=== PATIENT | male | born 1955 | race American Indian/Alaskan Native ===

== ENCOUNTER 2017-02-09 06:32 | Emergency (ER) | payer OTHER ==
[2017-02-09 06:41] VITALS: BP 153/94
[2017-02-09] MEDS ORDERED: TYLENOL PO ONE (09:32)
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
== END 2017-02-09 19:00 | disposition left against medical advice (07) ==
LOC: ED 06:32
DX: M54.5 Low back pain (principal); M54.2 Cervicalgia; M54.6 Pain in thoracic spine; V49.59XA Passenger injured in collision with other motor vehicles in traffic accident, initial encounter; X58.XXXA Exposure to other specified factors, initial encounter; Y93.9 Activity, unspecified; Y92.9 Unspecified place or not applicable; Y99.9 Unspecified external cause status; I10 Essential (primary) hypertension; F17.200 Nicotine dependence, unspecified, uncomplicated
CPT/HCPCS: 72072; 72100

== ENCOUNTER 2017-05-20 18:48 | Inpatient (IN) | payer MEDICARE, OTHER ==
[2017-05-21] MEDS ORDERED: ASPIRIN PO ONE (00:30)
[2017-05-21 00:56] LABS: Basophils % (Auto) 0.3 % (0.0-1.8); Eosinophils # (Auto) 0.1 K/mm3 (0.0-0.4); Eosinophils % (Auto) 0.7 % (0.0-4.3); Hematocrit 44.8 % (35.5-45.6); Hemoglobin 14.8 gm/dl (11.8-15.2); Lymphocytes # (Auto) 2.7 K/mm3 (1.2-5.4); Lymphocytes % (Auto) 24.3 % (13.4-35.0); Mean Corpuscular HGB Conc 33 % (32-34); Mean Corpuscular Hemoglobin 29 pg (28-32); Mean Corpuscular Volume 89 fl (84-94); Monocytes # (Auto) 1.1 K/mm3 (0.0-0.8); Monocytes % (Auto) 9.4 % (0.0-7.3); Platelet Count 271 K/mm3 (140-440); Red Blood Count 5.04 M/mm3 (3.65-5.03); Red Cell Distribution Width 14.5 % (13.2-15.2)
[2017-05-21 01:13] LABS: BUN/Creatinine Ratio 13; Blood Urea Nitrogen 9 mg/dL (9-20); Calcium 9.6 mg/dL (8.4-10.2); Hemolysis Index 19
[2017-05-21 02:32] LABS: Chol/HDL Ratio 1.96 %; HDL Cholesterol 65 mg/dL (40-59); LDL Cholesterol,Direct 48 mg/dL (50-130)
--- NOTE | 2017-05-21 06:32 | Emergency Department Report ---
ED Chest Pain HPI - General Chief Complaint: Chest Pain Stated Complaint: CHEST PAIN/MH Time Seen by Provider: 05/21/17 06:30 Source: patient Mode of arrival: Stretcher Limitations: No Limitations - History of Present Illness Initial Comments: Patient reports having a stent placed at the [facility] approximately one week ago. He is complaining of left-sided chest pain with some left arm radiation. He states that it feels similar to his prior chest pain before his stent but much less in intensity. It is mildly persistent. He states he's had some shortness of breath recently but not currently. He's had no recent sweating or diaphoresis no vomiting and no recent travel. Patient also complains of depression with suicidal thoughts. He states he was admitted 2-3 weeks ago for the same. MD Complaint: chest pain -: Gradual, days(s) Onset: during rest Pain Location: left chest Pain Radiation: LUE Severity: mild, moderate Quality: pressure Consistency: intermittent, other (mildly persistent) Improves With: nothing Worsens With: nothing Context: other (recent PCI) re: denies: diaphoresis, sense of impending doom Other Symptoms: denies: cough, fever, syncope Treatments Prior to Arrival: other (states on Plavix) - Related Data Home Medications Medication Instructions Recorded Confirmed Last Taken Amlodipine Besylate 02/09/17 Unknown traZODone [Desyrel] 100 mg PO 02/09/17 Unknown Previous Rx's Medication Instructions Recorded Last Taken Type Acetaminophen [Tylenol Extra 500 mg PO Q8HR PRN #15 tablet 02/09/17 Unknown Rx Strength] methOCARBAMOL [Robaxin TAB] 500 mg PO Q6H PRN #15 tablet 02/09/17 Unknown Rx Allergies Allergy/AdvReac Type Severity Reaction Status Date / Time No Known Allergies Allergy Verified 05/21/17 06:32 Heart Score - HEART Score History: Moderately suspicious EKG: Non-specific Age: 45-65 Risk factors: > 3 risk factors or hx of atherosclerotic disease Troponin: 1-3x normal limit HEART Score: 6 - Critical Actions Critical Actions: 4-6 pts:12-16.6% risk of adverse cardiac event. Should be admitted ED Review of Systems ROS: Stated complaint: CHEST PAIN/MH Other details as noted in HPI Constitutional: denies: chills, fever Eyes: denies: eye pain, eye discharge, vision change ENT: denies: ear pain, throat pain Respiratory: shortness of breath. denies: cough, wheezing Cardiovascular: chest pain. denies: palpitations Endocrine: no symptoms reported Gastrointestinal: denies: abdominal pain, nausea, diarrhea Genitourinary: denies: urgency, dysuria Musculoskeletal: denies: back pain, joint swelling, arthralgia Skin: denies: rash, lesions Neurological: denies: headache, weakness, paresthesias Psychiatric: depression, suicidal thoughts. denies: anxiety Hematological/Lymphatic: denies: easy bleeding, easy bruising ED Past Medical Hx - Past Medical History Hx Hypertension: Yes Hx Heart Attack/AMI: Yes (CAD) - Surgical History Hx Coronary Stent: Yes (X 3) - Social History Smoking Status: Current Every Day Smoker Substance Use Type: None - Medications Home Medications: Home Medications Medication Instructions Recorded Confirmed Last Taken Type Acetaminophen [Tylenol Extra 500 mg PO Q8HR PRN #15 tablet 02/09/17 Unknown Rx Strength] Amlodipine Besylate 02/09/17 Unknown History methOCARBAMOL [Robaxin TAB] 500 mg PO Q6H PRN #15 tablet 02/09/17 Unknown Rx traZODone [Desyrel] 100 mg PO 02/09/17 Unknown History ED Physical Exam - General Limitations: No Limitations General appearance: alert, in no apparent distress - Head Head exam: Present: atraumatic, normocephalic - Eye Eye exam: Present: normal appearance. Absent: scleral icterus - ENT ENT exam: Present: mucous membranes moist - Neck Neck exam: Present: normal inspection - Respiratory Respiratory exam: Present: normal lung sounds bilaterally. Absent: respiratory distress - Cardiovascular Cardiovascular Exam: Present: regular rate, normal rhythm. Absent: systolic murmur, diastolic murmur, rubs, gallop - GI/Abdominal GI/Abdominal exam: Present: soft, normal bowel sounds. Absent: distended, tenderness, guarding, rebound - Rectal Rectal exam: Present: deferred - Extremities Exam Extremities exam: Present: normal inspection, normal capillary refill. Absent: tenderness, pedal edema, joint swelling, calf tenderness - Back Exam Back exam: Present: normal inspection - Neurological Exam Neurological exam: Present: alert, oriented X3, CN II-XII intact. Absent: motor sensory deficit - Psychiatric Psychiatric exam: Present: normal mood, flat affect - Skin Skin exam: Present: warm, dry, intact, normal color. Absent: rash ED Course Vital Signs 05/21/17 05/21/17 00:23 04:57 Temperature 98.8 F 98.1 F Pulse Rate 97 H 86 Respiratory 16 18 Rate Blood Pressure 154/104 136/95 O2 Sat by Pulse 98 96 Oximetry - Reevaluation(s) Reevaluation #1: A 1013 form was executed. I spoke with Dr. Wilkerson. The patient will be admitted to the hospitalist service. 05/21/17 08:08 DUYEN score - Duyen Score Age > 65: (0) No Aspirin use within the Past 7 Days: (0) No 3 or more CAD Risk Factors: (1) Yes 2 or more Angina events in past 24 hrs: (1) Yes Known CAD with more than 50% Stenosis: (1) Yes Elevated Cardiac Markers: (1) Yes ST Deviation Greater than 0.5mm: (0) No DUYEN Score: 4 ED Medical Decision Making - Lab Data Result diagrams: 05/21/17 00:37 05/21/17 00:37 Laboratory Results - last 24 hr 05/21/17 05/21/17 05/21/17 00:37 00:37 05:28 WBC 11.2 H RBC 5.04 H Hgb 14.8 Hct 44.8 MCV 89 MCH 29 MCHC 33 RDW 14.5 Plt Count 271 Lymph % (Auto) 24.3 [place] % (Auto) 9.4 H Eos % (Auto) 0.7 Baso % (Auto) 0.3 Lymph # 2.7 [place] # 1.1 H Eos # 0.1 Baso # 0.0 Seg Neutrophils % 65.3 Seg Neutrophils # 7.3 Sodium 139 Potassium 3.8 Chloride 99.6 Carbon Dioxide 21 L Anion Gap 22 BUN 9 Creatinine 0.7 L Estimated GFR > 60 BUN/Creatinine Ratio 13 Glucose 98 Calcium 9.6 Troponin T 0.041 H 0.039 H Triglycerides 79 Cholesterol 128 LDL Cholesterol Direct 48 L HDL Cholesterol 65 H Cholesterol/HDL Ratio 1.96 - EKG Data -: EKG Interpreted by Me EKG shows normal: sinus rhythm, axis, intervals, QRS complexes, ST-T waves Rate: normal - EKG Data Interpretation: other (occasional ectopy no evidence of acute ischemia biatrial enlargement) - Radiology Data Radiology results: report reviewed interpreted by me: No acute finding on chest x-ray Critical care attestation.: If time is entered above; I have spent that time in minutes in the direct care of this critically ill patient, excluding procedure time. ED Disposition Clinical Impression: Suicidal ideation Chest pain Qualifiers: Chest pain type: unspecified Qualified Code(s): R07.9 - Chest pain, unspecified Coronary artery disease Qualifiers: Coronary Disease-Associated Artery/Lesion type: unspecified vessel or lesion type [place] vs. transplanted heart: [place] heart Associated angina: with unstable angina Qualified Code(s): I25.110 - Atherosclerotic heart disease of [place] coronary artery with unstable angina pectoris Depression Qualifiers: Depression Type: unspecified Qualified Code(s): F32.9 - Major depressive disorder, single episode, unspecified Disposition: DC-09 OP ADMIT IP TO THIS HOSP Is pt being admited?: Yes Does the pt Need Aspirin: Yes Condition: Stable Instructions: Chest Pain (ED) Referrals: PRIMARY CARE, [Primary Care Provider] - 3-5 Days Time of Disposition: 08:12
[2017-05-21 07:12] LABS: INR 1.01 (0.87-1.13)
[2017-05-21 07:13] LABS: Partial Thromboplastin Time 30.6 Sec. (24.2-36.6)
[2017-05-21 07:18] LABS: Albumin 3.8 g/dL (3.9-5); Bilirubin,Direct 0.2 mg/dL (0-0.2)
--- NOTE | 2017-05-21 08:06 | XRay Report ---
FINAL REPORT EXAM: XR CHEST 1V AP HISTORY: hypertension TECHNIQUE: AP portable view(s) of the chest obtained. PRIORS: None. FINDINGS: No mediastinal shift. Cardiac silhouette is not enlarged. No pneumothorax, effusion, or focal pulmonary opacity identified. No acute skeletal findings. IMPRESSION: No acute pulmonary finding identified.
[2017-05-21] MEDS ORDERED: NITRO-BID 2% TP ONE (08:12)
--- NOTE | 2017-05-21 08:54 | History and Physical Report ---
History of Present Illness Date of examination: 05/21/17 Date of admission: 05/21/17 Chief complaint: Left sided chest pain History of present illness: Patient is 61 yo. He is a poor historian. He has history of CAD, s/p [address] [facility]. He presents with chest pain. He states he had chest pain, went to CT, coronary stent was placed and he was discharged home. Few days later started having chest pain again. Left sided, 8/10, sharp pain radiates down to left arm, worse on exertion. Pain has no relationship to meals. He denies nausea, vomiting or shortness of breath. In Emergency Department, Troponins are borderline elevated. He also mentions being depressed and suicidal. Will admit to Telemetry to rule out acute coronary syndrome Past History Past Medical History: CAD (s/p stent 1-2 weeks ago), hypertension, hyperlipidemia, other (Anxiety and depression) Past Surgical History: Other (PCI,stent placement) Social history: single, smoking (1 pack daily), alcohol abuse (Ocassionally), full code, other (Cocaine abuse) Family history: hypertension Medications and Allergies Allergies Allergy/AdvReac Type Severity Reaction Status Date / Time No Known Allergies Allergy Verified 05/21/17 06:32 Home Medications Medication Instructions Recorded Confirmed Last Taken Type No Known Home Medications [No 05/22/17 05/22/17 Unknown History Reported Home Medications] Review of Systems All systems: negative (No fever, no cough, no headache. All other systems reviewed and are negative) Exam - Physical Exam Narrative exam: GEN APPEARANCE : Not in acute distress, obese HEENT: Normocephalic, Atraumatic NECK : supple, no JVD LUNGS: Clear to auscultation bilaterally, no crackles, no wheeze, HEART: S1 and S2 regular, no murmurs, rubs or gallop, ABD: Soft, non tender, non distended, normal bowel sounds EXT:No edema, no clubbing, no cyanosis NEURO: Awake, alert,oriented x 3, no focal signs Psych: Depressed - Constitutional Vitals: Temp Pulse Resp BP Pulse Ox 98.1 F 86 18 136/95 96 05/21/17 04:57 05/21/17 04:57 05/21/17 04:57 05/21/17 04:57 05/21/17 04:57 Results - Labs CBC & Chem 7: 05/22/17 06:23 05/22/17 06:23 Labs: Abnormal lab results 05/21/17 05/21/17 05/21/17 Range/Units 00:37 00:37 05:28 WBC 11.2 H (4.5-11.0) K/mm3 RBC 5.04 H (3.65-5.03) M/mm3 [place] % (Auto) 9.4 H (0.0-7.3) % [place] # 1.1 H (0.0-0.8) K/mm3 Carbon Dioxide 21 L (22-30) mmol/L Creatinine 0.7 L (0.8-1.5) mg/dL Troponin T 0.041 H 0.039 H (0.00-0.029) ng/mL Albumin (3.9-5) g/dL LDL Cholesterol Direct 48 L (50-130) mg/dL HDL Cholesterol 65 H (40-59) mg/dL 05/21/17 05/21/17 Range/Units 06:36 06:36 WBC (4.5-11.0) K/mm3 RBC (3.65-5.03) M/mm3 [place] % (Auto) (0.0-7.3) % [place] # (0.0-0.8) K/mm3 Carbon Dioxide (22-30) mmol/L Creatinine (0.8-1.5) mg/dL Troponin T 0.042 H (0.00-0.029) ng/mL Albumin 3.8 L (3.9-5) g/dL LDL Cholesterol Direct (50-130) mg/dL HDL Cholesterol (40-59) mg/dL Assessment and Plan Chest pain. may be stable angina or non-cardiac. Give Aspirin, Beta Blockers. Bed rest,Consult cardiology. Troponins borderline elevated CAD s/p recent stent 1-[address] Will obtain records from [place] Hypertension. BP stable. Suicidal. Psych eval , 1:1 sitter, suicidal watch. Cocaine abuse. I counseled him on importance of quitting cocaine. DVT prophylaxis. Will use SCDs only for now. may start Heparin if no procedure planned by Cardiology. Home medication list not available.
[2017-05-21] MEDS ORDERED: DULCOLAX PR PRN (08:56)
[2017-05-21] MEDS ORDERED: TYLENOL PO PRN (08:56)
[2017-05-21] MEDS ORDERED: ZOFRAN IV PRN (08:56)
[2017-05-21] MEDS ORDERED: MILK OF MAGNESIA PO PRN (08:56)
[2017-05-21] MEDS ORDERED: SODIUM CHLORIDE FLUSH SYRINGE 10 ML IV PRN (08:58)
[2017-05-21] MEDS ORDERED: NITROSTAT SL PRN (08:58)
--- NOTE | 2017-05-21 13:20 | Consultation ---
History of Present Illness Consult date: 05/21/17 Consult reason: chest pain History of present illness: 61 YO man with h/o htn, depression and CAD who presented to ED due to pain in the left side of his chest with associated dyspnea. He has not had any nausea or diaphoresis in association with chest pain. His troponin level is borderline elevated at 0.04. Of note, he reports he had recent PCI at [facility] with placement of 2 stents about 2 weeks ago. He also reports he has history of depression and had been thinking about killing himself. He is currently being monitored with 1:1 sitter due to suicidal thoughts. He reports he has been compliant with all medications including aspirin and plavix. He also reports chronic history of crack cocaine use and last used crack cocaine yesterday. ECG reveals NSR with right atrial enlargement, single PVC, prolonged QTc. Past History Past Medical History: CAD (s/p stent 1-2 weeks ago), hypertension, hyperlipidemia, other (Anxiety and depression) Past Surgical History: Other (PCI,stent placement) Social history: single, smoking (1 pack daily), alcohol abuse (Ocassionally), full code, other (crack cocaine abuse) Family history: hypertension Medications and Allergies Allergies Allergy/AdvReac Type Severity Reaction Status Date / Time No Known Allergies Allergy Verified 05/21/17 06:32 Home Medications Medication Instructions Recorded Confirmed Last Taken Type Acetaminophen [Tylenol Extra 500 mg PO Q8HR PRN #15 tablet 02/09/17 Unknown Rx Strength] Amlodipine Besylate 02/09/17 Unknown History methOCARBAMOL [Robaxin TAB] 500 mg PO Q6H PRN #15 tablet 02/09/17 Unknown Rx traZODone [Desyrel] 100 mg PO 02/09/17 Unknown History Active Meds: Active Medications Acetaminophen (Tylenol) 650 mg PO Q4H PRN PRN Reason: Pain MILD(1-3)/Fever >100.5/STUART Aspirin (Ecotrin) 325 mg PO QDAY DANY Bisacodyl (Dulcolax) 10 mg NM QDAY PRN PRN Reason: Constipation unrelieved by MOM Magnesium Hydroxide (Milk Of Magnesia) 30 ml PO Q4H PRN PRN Reason: Constipation Morphine Sulfate (Morphine) 2 mg IV Q5MIN PRN PRN Reason: Chest Pain Nitroglycerin (Nitrostat) 0.4 mg SL Q5M PRN PRN Reason: Chest Pain Ondansetron HCl (Zofran) 4 mg IV Q6H PRN PRN Reason: nausea or vomioting Sodium Chloride (Sodium Chloride Flush Syringe 10 Ml) 10 ml IV PRN PRN PRN Reason: LINE FLUSH Review of Systems All systems: negative (per hpi) Physical Examination Vital Signs Temp Pulse Resp BP Pulse Ox 98.8 F 97 H 16 154/104 98 05/21/17 00:23 05/21/17 00:23 05/21/17 00:23 05/21/17 00:23 05/21/17 00:23 General appearance: no acute distress Cardiac: Positive: Reg Rate and Rhythm Lungs: Positive: clear to auscultation, Normal Breath Sounds Abdomen: Positive: Soft, Active Bowel Sounds Extremities: Absent: edema Results 05/21/17 00:37 05/21/17 00:37 Cardiac Enzymes 05/21/17 Range/Units 06:36 AST 19 (5-40) units/L Coagulation 05/21/17 Range/Units 06:45 PT 13.8 (12.2-14.9) Sec. INR 1.01 (0.87-1.13) APTT 30.6 (24.2-36.6) Sec. Lipids 05/21/17 Range/Units 00:37 Triglycerides 79 (2-149) mg/dL Cholesterol 128 (50-199) mg/dL HDL Cholesterol 65 H (40-59) mg/dL Cholesterol/HDL Ratio 1.96 % CBC 05/21/17 Range/Units 00:37 WBC 11.2 H (4.5-11.0) K/mm3 RBC 5.04 H (3.65-5.03) M/mm3 Hgb 14.8 (11.8-15.2) gm/dl Hct 44.8 (35.5-45.6) % Plt Count 271 (140-440) K/mm3 Lymph # 2.7 (1.2-5.4) K/mm3 [place] # 1.1 H (0.0-0.8) K/mm3 Eos # 0.1 (0.0-0.4) K/mm3 Baso # 0.0 (0.0-0.1) K/mm3 Comprehensive Metabolic Panel 02/04/18 02/04/18 Range/Units 00:37 06:36 Sodium 139 (137-145) mmol/L Potassium 3.8 (3.6-5.0) mmol/L Chloride 99.6 (98-107) mmol/L Carbon Dioxide 21 L (22-30) mmol/L BUN 9 (9-20) mg/dL Creatinine 0.7 L (0.8-1.5) mg/dL Glucose 98 (75-100) mg/dL Calcium 9.6 (8.4-10.2) mg/dL Direct Bilirubin 0.2 (0-0.2) mg/dL Indirect Bilirubin 0.9 mg/dL AST 19 (5-40) units/L ALT 17 (7-56) units/L Alkaline Phosphatase 101 (35-129) units/L Total Protein 7.1 (6.3-8.2) g/dL Albumin 3.8 L (3.9-5) g/dL Assessment and Plan Atypical chest pain Minimal troponin elevation not in a pattern suggestive of ACS and no significant ischemic changes on ECG CAD s/p recent PCI at [facility] per patient Crack cocaine abuse Htn HL Recommend: Continue chronic cardiac medications inclulding statin and dual antiplatelet therapy with aspirin and plavix Will avoid beta anthony for now due to active cocaine use Obtain records from [facility].
[2017-05-21] MEDS: PLAVIX PO SCH (13:41)
[2017-05-22 07:27] LABS: BUN/Creatinine Ratio 18; Blood Urea Nitrogen 14 mg/dL (9-20); Calcium 9.1 mg/dL (8.4-10.2); Hemolysis Index 13
[2017-05-22 09:02] LABS: Basophils % (Auto) 0.4 % (0.0-1.8); Eosinophils # (Auto) 0.1 K/mm3 (0.0-0.4); Eosinophils % (Auto) 1.4 % (0.0-4.3); Hematocrit 43.3 % (35.5-45.6); Hemoglobin 14.3 gm/dl (11.8-15.2); Lymphocytes % (Auto) 28.4 % (13.4-35.0); Mean Corpuscular HGB Conc 33 % (32-34); Mean Corpuscular Hemoglobin 29 pg (28-32); Mean Corpuscular Volume 88 fl (84-94); Monocytes % (Auto) 14.4 % (0.0-7.3); Platelet Count 245 K/mm3 (140-440); Red Blood Count 4.94 M/mm3 (3.65-5.03); Red Cell Distribution Width 14.4 % (13.2-15.2)
[2017-05-22] MEDS: PLAVIX PO SCH (10:07)
[2017-05-22] MEDS: ECOTRIN PO SCH (10:07)
[2017-05-22] MEDS: MORPHINE IV PRN ×3 (10:10→21:01)
--- NOTE | 2017-05-22 11:06 | Progress Note ---
Assessment and Plan Atypical chest pain no significant ischemic changes on ECG CAD s/p recent PCI at [facility] per patient reports compliance with aspirin and plavix therapy Cocaine abuse Htn HL Recommend: Medical therapy for coronary artery disease including statin and dual antiplatelet therapy with aspirin and plavix Avoid beta anthony for now due to active cocaine use. Obtain records from [facility]. Subjective Date of service: 05/22/17 Interval history: Patient denies chest pain. Objective Vital Signs Temp Pulse Resp BP BP Pulse Ox 05/22/17 08:27 84 130/107 100 05/22/17 08:26 97.7 F 63 18 130/107 100 05/22/17 04:46 98.1 F 68 19 121/84 95 05/22/17 03:00 69 05/21/17 23:58 99.2 F 86 20 121/86 95 05/21/17 20:01 98.7 F 88 20 126/87 99 05/21/17 19:40 80 05/21/17 12:40 77 16 101/71 99 - Physical Examination General: No Apparent Distress HEENT: Positive: PERRL Cardiac: Positive: Reg Rate and Rhythm Abdomen: Positive: Soft, Active Bowel Sounds Extremities: Absent: edema - Labs and Meds CBC 05/22/17 Range/Units 06:23 WBC 7.0 (4.5-11.0) K/mm3 RBC 4.94 (3.65-5.03) M/mm3 Hgb 14.3 (11.8-15.2) gm/dl Hct 43.3 (35.5-45.6) % Plt Count 245 (140-440) K/mm3 Lymph # 2.0 (1.2-5.4) K/mm3 [place] # 1.0 H (0.0-0.8) K/mm3 Eos # 0.1 (0.0-0.4) K/mm3 Baso # 0.0 (0.0-0.1) K/mm3 Comprehensive Metabolic Panel 05/22/17 Range/Units 06:23 Sodium 144 (137-145) mmol/L Potassium 3.8 (3.6-5.0) mmol/L Chloride 106.1 (98-107) mmol/L Carbon Dioxide 23 (22-30) mmol/L BUN 14 (9-20) mg/dL Creatinine 0.8 (0.8-1.5) mg/dL Glucose 118 H (75-100) mg/dL Calcium 9.1 (8.4-10.2) mg/dL
--- NOTE | 2017-05-22 13:01 | Progress Note ---
Assessment and Plan Assessment and plan: Chest pain. May be stable angina or non-cardiac. Continue Aspirin, Beta Blockers , bed rest. Discussed with cardiology. Troponins borderline elevated CAD s/p recent stent 2 weeks ago at [place]. Will obtain records from [place] Hypertension. BP stable. Suicidal. Psych eval , 1:1 sitter, suicidal watch. Psych consulted. Cocaine abuse. I counseled him on importance of quitting cocaine. DVT prophylaxis. Start Heparin subcut. Home medication list still not available. History Interval history: No more chest pain, depressed suicidal Hospitalist Physical - Physical exam Narrative exam: GEN APPEARANCE : Not in acute distress, obese HEENT: Normocephalic, Atraumatic NECK : supple, no JVD LUNGS: Clear to auscultation bilaterally, no crackles, no wheeze, HEART: S1 and S2 regular, no murmurs, rubs or gallop, ABD: Soft, non tender, non distended, normal bowel sounds EXT:No edema, no clubbing, no cyanosis NEURO: Awake, alert,oriented x 3, no focal signs Psych: Depressed - Constitutional Vitals: Temp Pulse Resp BP Pulse Ox 97.7 F 84 18 130/107 100 05/22/17 08:26 05/22/17 11:00 05/22/17 08:26 05/22/17 08:27 05/22/17 08:27 General appearance: Present: no acute distress Results - Labs CBC & Chem 7: 05/22/17 06:23 05/22/17 06:23 Labs: Laboratory Last Values WBC 7.0 K/mm3 (4.5-11.0) 05/22/17 06:23 RBC 4.94 M/mm3 (3.65-5.03) 05/22/17 06:23 Hgb 14.3 gm/dl (11.8-15.2) 05/22/17 06:23 Hct 43.3 % (35.5-45.6) 05/22/17 06:23 MCV 88 fl (84-94) 05/22/17 06:23 MCH 29 pg (28-32) 05/22/17 06:23 MCHC 33 % (32-34) 05/22/17 06:23 RDW 14.4 % (13.2-15.2) 05/22/17 06:23 Plt Count 245 K/mm3 (140-440) 05/22/17 06:23 Lymph % (Auto) 28.4 % (13.4-35.0) 05/22/17 06:23 [place] % (Auto) 14.4 % (0.0-7.3) H 05/22/17 06:23 Eos % (Auto) 1.4 % (0.0-4.3) 05/22/17 06:23 Baso % (Auto) 0.4 % (0.0-1.8) 05/22/17 06:23 Lymph # 2.0 K/mm3 (1.2-5.4) 05/22/17 06:23 [place] # 1.0 K/mm3 (0.0-0.8) H 05/22/17 06:23 Eos # 0.1 K/mm3 (0.0-0.4) 05/22/17 06:23 Baso # 0.0 K/mm3 (0.0-0.1) 05/22/17 06:23 Seg Neutrophils % 55.4 % (40.0-70.0) 05/22/17 06:23 Seg Neutrophils # 3.9 K/mm3 (1.8-7.7) 05/22/17 06:23 PT 13.8 Sec. (12.2-14.9) 05/21/17 06:45 INR 1.01 (0.87-1.13) 05/21/17 06:45 APTT 30.6 Sec. (24.2-36.6) 05/21/17 06:45 Sodium 144 mmol/L (137-145) 05/22/17 06:23 Potassium 3.8 mmol/L (3.6-5.0) 05/22/17 06:23 Chloride 106.1 mmol/L (98-107) 05/22/17 06:23 Carbon Dioxide 23 mmol/L (22-30) 05/22/17 06:23 Anion Gap 19 mmol/L 05/22/17 06:23 BUN 14 mg/dL (9-20) 05/22/17 06:23 Creatinine 0.8 mg/dL (0.8-1.5) 05/22/17 06:23 Estimated GFR > 60 ml/min 05/22/17 06:23 BUN/Creatinine Ratio 18 % 05/22/17 06:23 Glucose 118 mg/dL (75-100) H 05/22/17 06:23 Calcium 9.1 mg/dL (8.4-10.2) 05/22/17 06:23 Total Bilirubin 1.10 mg/dL (0.1-1.2) 05/21/17 06:36 Direct Bilirubin 0.2 mg/dL (0-0.2) 05/21/17 06:36 Indirect Bilirubin 0.9 mg/dL 05/21/17 06:36 AST 19 units/L (5-40) 05/21/17 06:36 ALT 17 units/L (7-56) 05/21/17 06:36 Alkaline Phosphatase 101 units/L (35-129) 05/21/17 06:36 Troponin T 0.042 ng/mL (0.00-0.029) H 05/21/17 06:36 NT-Pro-B Natriuret Pep 688.9 pg/mL (0-900) 05/21/17 06:36 Total Protein 7.1 g/dL (6.3-8.2) 05/21/17 06:36 Albumin 3.8 g/dL (3.9-5) L 05/21/17 06:36 Albumin/Globulin Ratio 1.2 % 05/21/17 06:36 Triglycerides 79 mg/dL (2-149) 05/21/17 00:37 Cholesterol 128 mg/dL (50-199) 05/21/17 00:37 LDL Cholesterol Direct 48 mg/dL (50-130) L 05/21/17 00:37 HDL Cholesterol 65 mg/dL (40-59) H 05/21/17 00:37 Cholesterol/HDL Ratio 1.96 % 05/21/17 00:37
[2017-05-22] MEDS: HEPARIN SUB-Q SCH (21:01)
[2017-05-23] MEDS: HEPARIN SUB-Q SCH ×3 (06:31→21:42)
[2017-05-23] MEDS: ECOTRIN PO SCH (10:55)
[2017-05-23] MEDS: PLAVIX PO SCH (10:55)
--- NOTE | 2017-05-23 10:56 | Consultation ---
History of Present Illness - Reason for Consult Consult date: 05/23/17 Reason for consult: Mental Health Evaluation Requesting physician: ANTONI SALAZAR - Chief Complaint Chief complaint: "I have no reason to live" - History of Present Psychiatric Illness Patient reports having a stent placed at [facility] approximately one week ago. Psychiatry was consulted to see patient for depression and SI's. Today the patient is calm and cooperative during the assessment. He stated that his current medical condition (cardiac issues) has exacerbated his depression. He stated he was dx with depression several years ago. He stated that he is suicidal without a plan. He stated a previous suicide attempt in the past. He stated that he cannot initiate his sleep because he worries about his medical issues. He stated having a "so so" appetite. He stated when he think about his life, he feel hopeless, helpless, and lack self-esteem. He stated that he is "useless." He rate his depression 7/10, with 10 being the worse. He denies HI's and AVH's. He denies any manic episodes in the past. He admitted to crack cocaine use last weekend, but denies alcohol consumption (etoh). Medications and Allergies Allergies Allergy/AdvReac Type Severity Reaction Status Date / Time No Known Allergies Allergy Verified 05/21/17 06:32 Home Medications Medication Instructions Recorded Confirmed Last Taken Type Aspirin [Aspirin BABY CHEW TAB] 81 mg PO QDAY 05/22/17 05/23/17 1 Day Ago History ~05/22/17 Atorvastatin Calcium 80 mg PO DAILY 05/22/17 05/23/17 1 Day Ago History ~05/22/17 Carvedilol [Coreg] 6.25 mg PO BID 05/22/17 05/23/17 1 Day Ago History ~05/22/17 Clopidogrel Bisulfate [Plavix] 75 mg PO DAILY 05/22/17 05/23/17 1 Day Ago History ~05/22/17 Cyanocobalamin (Vitamin B-12) 1,000 mcg IM UNK 05/22/17 05/23/17 1 Day Ago History [Physicians Ez Use B-12] ~05/22/17 Escitalopram [Lexapro] 10 mg PO DAILY 05/22/17 05/23/17 1 Day Ago History ~05/22/17 Folic Acid [Folvite] 1 mg PO QDAY 05/22/17 05/23/17 1 Day Ago History ~05/22/17 Furosemide [Lasix] 40 mg PO QDAY 05/22/17 05/23/17 1 Day Ago History ~05/22/17 Gabapentin [Neurontin] 400 mg PO Q8HR 05/22/17 05/23/17 1 Day Ago History ~05/22/17 ISOSORBIDE MONOnitrate [Imdur ER] 30 mg PO DAILY 05/22/17 05/23/17 1 Day Ago History ~05/22/17 Lisinopril [Zestril TAB] 10 mg PO QDAY 05/22/17 05/23/17 1 Day Ago History ~05/22/17 Melatonin/Pyridoxine [Melatonin 5 5 mg PO HS MDD upto 2 tablets 05/22/17 1 Day Ago History mg Tablet] ~05/22/17 Thiamine [Vitamin B-1] 100 mg PO QDAY 05/22/17 05/23/17 1 Day Ago History ~05/22/17 amLODIPine [Norvasc] 10 mg PO DAILY 05/22/17 05/23/17 1 Day Ago History ~05/22/17 buPROPion XL [Wellbutrin Xl] 150 mg PO QAM 05/22/17 05/23/17 1 Day Ago History ~05/22/17 Active Meds: Active Medications Acetaminophen (Tylenol) 650 mg PO Q4H PRN PRN Reason: Pain MILD(1-3)/Fever >100.5/STUART Aspirin (Ecotrin) 325 mg PO QDAY [facility] Last Admin: 05/23/17 10:55 Dose: 325 mg Bisacodyl (Dulcolax) 10 mg [place] QDAY PRN PRN Reason: Constipation unrelieved by MOM Clopidogrel Bisulfate (Plavix) 75 mg PO QDAY [facility] Last Admin: 05/23/17 10:55 Dose: 75 mg Heparin Sodium (Porcine) (Heparin) 5,000 unit SUB-Q Q8HR [facility] Last Admin: 05/23/17 06:31 Dose: 5,000 unit Magnesium Hydroxide (Milk Of Magnesia) 30 ml PO Q4H PRN PRN Reason: Constipation Last Admin: 05/22/17 21:01 Dose: 30 ml Morphine Sulfate (Morphine) 2 mg IV Q5MIN PRN PRN Reason: Chest Pain Last Admin: 05/22/17 21:01 Dose: 2 mg Nitroglycerin (Nitrostat) 0.4 mg SL Q5M PRN PRN Reason: Chest Pain Ondansetron HCl (Zofran) 4 mg IV Q6H PRN PRN Reason: nausea or vomioting Sodium Chloride (Sodium Chloride Flush Syringe 10 Ml) 10 ml IV PRN PRN PRN Reason: LINE FLUSH Past psychiatric history - Past Medical History Past Medical History: hypertension, other ([place]) Past Surgical History: Other (stents) - past Psychiatric treatment and history Psych: Depression psychiatric treatment history: Impatient psy services in the past. Denies a fam psy hx. - Social History Social history: other (Homeless) Mental Status Exam - Vital signs Last Vital Signs Temp 98.6 F 05/23/17 04:33 Pulse 68 05/23/17 04:33 Resp 18 05/23/17 04:33 BP 125/94 05/23/17 04:33 Pulse Ox 100 05/23/17 09:17 - Exam Narrative exam: MSE: Appearance: calm, cooperative Behavior: regular eye contact Speech: regular rate and tone Mood: "depressed" Affect: congruent to mood Thought Process: circumstantial Thought Content: denies HI's and AVH's Motor Activity: ambulatory Cognition: A/O x3 Insight: variable Judgment: variable Results Result Diagrams: 05/22/17 06:23 05/22/17 06:23 All other labs normal. Assessment and Plan Assessment and plan: Impression: MDD Severe Type. Today the patient is calm and cooperative during the assessment. The patient endorses SI's. DDx: R/O Bipolar DO Recommendation/Plan: Continue 1013 with placement to inpatient psy services. Start Remeron 15 mg PO HS for depression/sleep consolidation. Discussed possible suicidality/medication induced sanjay with patient.
--- NOTE | 2017-05-23 12:49 | Progress Note ---
Assessment and Plan Assessment and plan: Chest pain. Patient with no ST abnormalities on his ECG and no clinical or laboratory indicators of subacute stent thrombosis. Continue Aspirin, Beta Blockers. Cardiology recommends continue medical therapy for his underlying coronary artery disease CAD s/p recent stent 2 weeks ago at [place]. Discontinue tobacco use Hypertension. BP stable. Suicidal. Psych eval , 1:1 sitter, suicidal watch. Psych following. Recommendations for inpatient psychiatric services. Cocaine abuse. Has been counseled on the importance of quitting. DVT prophylaxis. Start Heparin subcut. History Interval history: No new issues overnight. Hospitalist Physical - Constitutional Vitals: Temp Pulse Resp BP Pulse Ox 98.6 F 57 L 18 125/94 100 05/23/17 04:33 05/23/17 11:00 05/23/17 04:33 05/23/17 04:33 05/23/17 09:17 General appearance: Present: no acute distress - EENT Eyes: Present: PERRL, EOM intact ENT: hearing intact, clear oral mucosa, dentition normal - Neck Neck: Present: supple, normal ROM - Respiratory Respiratory effort: normal Respiratory: bilateral: CTA - Cardiovascular Rhythm: regular Heart Sounds: Present: S1 & S2. Absent: gallop, rub - Extremities Extremities: no ischemia, No edema, Full ROM - Abdominal General gastrointestinal: soft, non-tender, non-distended, normal bowel sounds - Integumentary Integumentary: Present: clear, warm, dry - Neurologic Neurologic: CNII-XII intact, moves all extremities Results - Labs CBC & Chem 7: 05/22/17 06:23 05/22/17 06:23 Labs: Laboratory Last Values WBC 7.0 K/mm3 (4.5-11.0) 05/22/17 06:23 RBC 4.94 M/mm3 (3.65-5.03) 05/22/17 06:23 Hgb 14.3 gm/dl (11.8-15.2) 05/22/17 06:23 Hct 43.3 % (35.5-45.6) 05/22/17 06:23 MCV 88 fl (84-94) 05/22/17 06:23 MCH 29 pg (28-32) 05/22/17 06:23 MCHC 33 % (32-34) 05/22/17 06:23 RDW 14.4 % (13.2-15.2) 05/22/17 06:23 Plt Count 245 K/mm3 (140-440) 05/22/17 06:23 Lymph % (Auto) 28.4 % (13.4-35.0) 05/22/17 06:23 [place] % (Auto) 14.4 % (0.0-7.3) H 05/22/17 06:23 Eos % (Auto) 1.4 % (0.0-4.3) 05/22/17 06:23 Baso % (Auto) 0.4 % (0.0-1.8) 05/22/17 06:23 Lymph # 2.0 K/mm3 (1.2-5.4) 05/22/17 06:23 [place] # 1.0 K/mm3 (0.0-0.8) H 05/22/17 06:23 Eos # 0.1 K/mm3 (0.0-0.4) 05/22/17 06:23 Baso # 0.0 K/mm3 (0.0-0.1) 05/22/17 06:23 Seg Neutrophils % 55.4 % (40.0-70.0) 05/22/17 06:23 Seg Neutrophils # 3.9 K/mm3 (1.8-7.7) 05/22/17 06:23 PT 13.8 Sec. (12.2-14.9) 05/21/17 06:45 INR 1.01 (0.87-1.13) 05/21/17 06:45 APTT 30.6 Sec. (24.2-36.6) 05/21/17 06:45 Sodium 144 mmol/L (137-145) 05/22/17 06:23 Potassium 3.8 mmol/L (3.6-5.0) 05/22/17 06:23 Chloride 106.1 mmol/L (98-107) 05/22/17 06:23 Carbon Dioxide 23 mmol/L (22-30) 05/22/17 06:23 Anion Gap 19 mmol/L 05/22/17 06:23 BUN 14 mg/dL (9-20) 05/22/17 06:23 Creatinine 0.8 mg/dL (0.8-1.5) 05/22/17 06:23 Estimated GFR > 60 ml/min 05/22/17 06:23 BUN/Creatinine Ratio 18 % 05/22/17 06:23 Glucose 118 mg/dL (75-100) H 05/22/17 06:23 Calcium 9.1 mg/dL (8.4-10.2) 05/22/17 06:23 Total Bilirubin 1.10 mg/dL (0.1-1.2) 05/21/17 06:36 Direct Bilirubin 0.2 mg/dL (0-0.2) 05/21/17 06:36 Indirect Bilirubin 0.9 mg/dL 05/21/17 06:36 AST 19 units/L (5-40) 05/21/17 06:36 ALT 17 units/L (7-56) 05/21/17 06:36 Alkaline Phosphatase 101 units/L (35-129) 05/21/17 06:36 Troponin T 0.042 ng/mL (0.00-0.029) H 05/21/17 06:36 NT-Pro-B Natriuret Pep 688.9 pg/mL (0-900) 05/21/17 06:36 Total Protein 7.1 g/dL (6.3-8.2) 05/21/17 06:36 Albumin 3.8 g/dL (3.9-5) L 05/21/17 06:36 Albumin/Globulin Ratio 1.2 % 05/21/17 06:36 Triglycerides 79 mg/dL (2-149) 05/21/17 00:37 Cholesterol 128 mg/dL (50-199) 05/21/17 00:37 LDL Cholesterol Direct 48 mg/dL (50-130) L 05/21/17 00:37 HDL Cholesterol 65 mg/dL (40-59) H 05/21/17 00:37 Cholesterol/HDL Ratio 1.96 % 05/21/17 00:37
--- NOTE | 2017-05-23 14:28 | Progress Note ---
Assessment and Plan Atypical chest pain no significant ischemic changes on ECG Depression CAD s/p recent PCI reports compliance with aspirin and plavix therapy Dilated Cardiomyopathy, EF 35-40% on recent echo Cocaine abuse Htn HL Recommend: Resume medical therapy for coronary artery disease including statin and dual antiplatelet therapy with aspirin and plavix Avoid beta anthony for now due to active cocaine use. Subjective Date of service: 05/23/17 Interval history: Patient denies chest pain and shortness of breath. Objective Vital Signs Temp Pulse Resp BP BP Pulse Ox 05/23/17 11:00 57 L 05/23/17 09:17 100 05/23/17 04:33 98.6 F 68 18 125/94 05/23/17 03:14 98.6 F 66 18 125/94 97 05/23/17 03:00 70 05/23/17 00:50 98.4 F 62 18 125/90 99 05/22/17 21:11 18 05/22/17 20:10 98.7 F 76 16 126/89 05/22/17 17:13 98.3 F 66 18 135/95 97 05/22/17 15:18 100 - Physical Examination General: No Apparent Distress HEENT: Positive: PERRL Cardiac: Positive: Reg Rate and Rhythm Lungs: Positive: Decreased Breath Sounds Neuro: Positive: Grossly Intact Extremities: Absent: edema
[2017-05-23] MEDS: MORPHINE IV PRN (19:04)
[2017-05-23] MEDS: REMERON PO SCH (21:40)
[2017-05-24] MEDS: HEPARIN SUB-Q SCH ×3 (06:04→22:55)
[2017-05-24] MEDS: PLAVIX PO SCH (09:32)
[2017-05-24] MEDS: ECOTRIN PO SCH (09:32)
--- NOTE | 2017-05-24 09:42 | Progress Note ---
Assessment and Plan Atypical chest pain no significant ischemic changes on ECG Depression CAD s/p recent PCI reports compliance with aspirin and plavix therapy Dilated Cardiomyopathy, EF 35-40% on recent echo Cocaine abuse Htn HL Recommend: Resume medical therapy for coronary artery disease including statin and dual antiplatelet therapy with aspirin and plavix Avoid beta anthony for now due to active cocaine use. Conservative cardiac management. Subjective Date of service: 05/24/17 Interval history: Patient is resting in bed comfortably. He denies chest pain and shortness of breath. Objective Vital Signs Temp Pulse Resp BP Pulse Ox 05/23/17 23:17 98.8 F 63 18 138/94 97 05/23/17 22:00 74 20 05/23/17 19:11 98.6 F 78 16 125/94 93 05/23/17 19:02 65 137/90 05/23/17 18:50 98.5 F 65 22 137/90 98 05/23/17 17:18 98.9 F 63 18 136/97 98 05/23/17 13:09 98.2 F 18 148/100 05/23/17 13:06 99.0 F 18 138/54 05/23/17 13:05 138/54 05/23/17 11:00 57 L 05/23/17 10:08 98.6 F 68 18 132/92 99 - Physical Examination General: No Apparent Distress HEENT: Positive: PERRL Cardiac: Positive: Reg Rate and Rhythm Lungs: Positive: Decreased Breath Sounds Neuro: Positive: Grossly Intact
--- NOTE | 2017-05-24 12:03 | Progress Note ---
Assessment and Plan Assessment and plan: Chest pain. Patient with no ST abnormalities on his ECG and no clinical or laboratory indicators of subacute stent thrombosis. Continue Aspirin, plavix. Beta Blockers held due to active cocaine use.. Cardiology recommends conservative cardiac management. CAD s/p recent stent 2 weeks ago at [place]. Discontinue tobacco use Hypertension. BP stable. Suicidal. Psych eval , 1:1 sitter, suicidal watch. Psych following. Recommendations for inpatient psychiatric services. Cocaine abuse. Has been counseled on the importance of quitting. DVT prophylaxis. Cont Heparin subcut. History Interval history: No new issues overnight. Hospitalist Physical - Constitutional Vitals: Temp Pulse Resp BP Pulse Ox 98.8 F 63 18 138/94 97 05/23/17 23:17 05/23/17 23:17 05/23/17 23:17 05/23/17 23:17 05/23/17 23:17 General appearance: Present: no acute distress - EENT Eyes: Present: PERRL, EOM intact ENT: hearing intact, clear oral mucosa, dentition normal - Neck Neck: Present: supple, normal ROM - Respiratory Respiratory effort: normal Respiratory: bilateral: CTA - Cardiovascular Rhythm: regular Heart Sounds: Present: S1 & S2. Absent: gallop, rub - Extremities Extremities: no ischemia, No edema, Full ROM - Abdominal General gastrointestinal: soft, non-tender, non-distended, normal bowel sounds - Integumentary Integumentary: Present: clear, warm, dry - Neurologic Neurologic: CNII-XII intact, moves all extremities Results - Labs CBC & Chem 7: 05/22/17 06:23 05/22/17 06:23 Labs: Laboratory Last Values WBC 7.0 K/mm3 (4.5-11.0) 05/22/17 06:23 RBC 4.94 M/mm3 (3.65-5.03) 05/22/17 06:23 Hgb 14.3 gm/dl (11.8-15.2) 05/22/17 06:23 Hct 43.3 % (35.5-45.6) 05/22/17 06:23 MCV 88 fl (84-94) 05/22/17 06:23 MCH 29 pg (28-32) 05/22/17 06: MCHC 33 % (32-34) 05/22/17 06:23 RDW 14.4 % (13.2-15.2) 05/22/17 06:23 Plt Count 245 K/mm3 (140-440) 05/22/17 06:23 Lymph % (Auto) 28.4 % (13.4-35.0) 05/22/17 06:23 [place] % (Auto) 14.4 % (0.0-7.3) H 05/22/17 06:23 Eos % (Auto) 1.4 % (0.0-4.3) 05/22/17 06:23 Baso % (Auto) 0.4 % (0.0-1.8) 05/22/17 06:23 Lymph # 2.0 K/mm3 (1.2-5.4) 05/22/17 06:23 [place] # 1.0 K/mm3 (0.0-0.8) H 05/22/17 06:23 Eos # 0.1 K/mm3 (0.0-0.4) 05/22/17 06:23 Baso # 0.0 K/mm3 (0.0-0.1) 05/22/17 06:23 Seg Neutrophils % 55.4 % (40.0-70.0) 05/22/17 06:23 Seg Neutrophils # 3.9 K/mm3 (1.8-7.7) 05/22/17 06:23 PT 13.8 Sec. (12.2-14.9) 05/21/17 06:45 INR 1.01 (0.87-1.13) 05/21/17 06:45 APTT 30.6 Sec. (24.2-36.6) 05/21/17 06:45 Sodium 144 mmol/L (137-145) 05/22/17 06:23 Potassium 3.8 mmol/L (3.6-5.0) 05/22/17 06:23 Chloride 106.1 mmol/L (98-107) 05/22/17 06:23 Carbon Dioxide 23 mmol/L (22-30) 05/22/17 06:23 Anion Gap 19 mmol/L 05/22/17 06:23 BUN 14 mg/dL (9-20) 05/22/17 06:23 Creatinine 0.8 mg/dL (0.8-1.5) 05/22/17 06:23 Estimated GFR > 60 ml/min 05/22/17 06:23 BUN/Creatinine Ratio 18 % 05/22/17 06:23 Glucose 118 mg/dL (75-100) H 05/22/17 06:23 Calcium 9.1 mg/dL (8.4-10.2) 05/22/17 06:23 Total Bilirubin 1.10 mg/dL (0.1-1.2) 05/21/17 06:36 Direct Bilirubin 0.2 mg/dL (0-0.2) 05/21/17 06:36 Indirect Bilirubin 0.9 mg/dL 05/21/17 06:36 AST 19 units/L (5-40) 05/21/17 06:36 ALT 17 units/L (7-56) 05/21/17 06:36 Alkaline Phosphatase 101 units/L (35-129) 05/21/17 06:36 Troponin T 0.042 ng/mL (0.00-0.029) H 05/21/17 06:36 NT-Pro-B Natriuret Pep 688.9 pg/mL (0-900) 05/21/17 06:36 Total Protein 7.1 g/dL (6.3-8.2) 05/21/17 06:36 Albumin 3.8 g/dL (3.9-5) L 05/21/17 06:36 Albumin/Globulin Ratio 1.2 % 05/21/17 06:36 Triglycerides 79 mg/dL (2-149) 05/21/17 00:37 Cholesterol 128 mg/dL (50-199) 05/21/17 00:37 LDL Cholesterol Direct 48 mg/dL (50-130) L 05/21/17 00:37 HDL Cholesterol 65 mg/dL (40-59) H 05/21/17 00:37 Cholesterol/HDL Ratio 1.96 % 05/21/17 00:37
--- NOTE | 2017-05-24 14:31 | Query- Chest Pain ---
Deabryan Pimentel Myles Date:____05/24/17 Facility Maintenance Supervisor/CDS: Rohit Phone#:____[phone] Exercise your independent professional judgment when responding to query. Questions asked do not imply a particular answer is desired or expected. We greatly appreciate your clarification on this issue. Clinical Documentation States: 61 year old male was admitted on 05/21/17 The progress note ( Dr. Bueno) states " Assessment and plan: Chest pain. Patient with no ST abnormalities on his ECG and no clinical or laboratory indicators of subacute stent thrombosis. Continue Aspirin, plavix. Beta Blockers held due to active cocaine use.. Cardiology recommends conservative cardiac management. CAD s/p recent stent 2 weeks ago at [place]. " The H&P (Dr. Wilkerson) states " History of present illness: Patient is 61 yo. He is a poor historian. He has history of CAD, s/p 2 weeks ago at [facility]. He presents with chest pain. " Please document the etiology of Chest Pain: [ ] Myocardial Infarction [ ] Pneumonia [ ] Mediastinitis [ ] Costochondritis [ ] Pulmonary Embolism [ ] Coronary Artery Disease [x ] GERD [ ] Other: [ ] Comment/Explanation: Present on Admission: [x ] Yes (Y) [ ] Clinically undeterminable (W) [ ] No(N) Please document response in your Progress Notes and/or Discharge Summary and indicate if the condition was present on admission. LAUREN
[2017-05-24] MEDS: REMERON PO SCH (22:55)
[2017-05-25] MEDS: HEPARIN SUB-Q SCH ×3 (06:04→21:02)
--- NOTE | 2017-05-25 09:38 | Progress Note ---
Subjective - Reason for Consult Consult date: 05/25/17 Reason for consult: Psychiatry Follow-up - Chief Complaint Chief complaint: "I feel like I have hope" Patient reports having a stent placed at the [facility] approximately one week ago. Psychiatry was consulted to see patient for depression and SI's. Today the patient is calm and cooperative during the assessment. He stated that his SI's has "decreased." He stated that he want to live and refrain from using recreational drugs. He denies erratic sleep which was a problem on admission. He denies HI's and AVH's. He denies any side effects of his medication. Mental Status Exam - Vital signs Last Vital Signs Temp 98.2 F 05/25/17 04:07 Pulse 65 05/25/17 04:07 Resp 18 05/25/17 04:07 BP 118/88 05/25/17 04:07 Pulse Ox 99 05/25/17 04:07 - Exam Narrative exam: MSE: Appearance: calm, cooperative Behavior: regular eye contact Speech: regular rate and tone Mood: "okay" Affect: congruent to mood Thought Process: circumstantial Thought Content: denies HI's and AVH's Motor Activity: ambulatory Cognition: A/O x3 Insight: variable Judgment: variable Assessment and Plan Impression: MDD Severe Type. Today the patient is calm and cooperative during the assessment. DDx: R/O Bipolar DO Recommendation/Plan: Evaluate 1013 in 24 hours to determine proper dispo. Continue Remeron 15 mg PO HS for depression/sleep consolidation. Discussed possible suicidality/medication induced sanjay with patient. Social Service involvement, patient is homeless.
--- NOTE | 2017-05-25 10:50 | Progress Note ---
Assessment and Plan Assessment and plan: Chest pain. Patient with no ST abnormalities on his ECG and no clinical or laboratory indicators of subacute stent thrombosis. Continue Aspirin, plavix. Beta Blockers held due to active cocaine use. Cardiology recommends conservative cardiac management. CAD s/p recent stent 2 weeks ago at [place]. Discontinue tobacco use Hypertension. BP stable. Suicidal. Continue 1013 with placement to inpatient psy services. Continue Remeron 15 mg PO HS for depression/sleep consolidation. 1:1 sitter, suicidal watch. Psych following. Cocaine abuse. Has been counseled on the importance of quitting. DVT prophylaxis. Cont Heparin subcut. History Interval history: No new issues overnight. Hospitalist Physical - Constitutional Vitals: Temp Pulse Resp BP Pulse Ox 98.2 F 65 18 118/88 99 05/25/17 04:07 05/25/17 04:07 05/25/17 04:07 05/25/17 04:07 05/25/17 04:07 General appearance: Present: no acute distress - EENT Eyes: Present: PERRL, EOM intact ENT: hearing intact, clear oral mucosa, dentition normal - Neck Neck: Present: supple, normal ROM - Respiratory Respiratory effort: normal Respiratory: bilateral: CTA - Cardiovascular Rhythm: regular Heart Sounds: Present: S1 & S2. Absent: gallop, rub - Extremities Extremities: no ischemia, No edema, Full ROM - Abdominal General gastrointestinal: soft, non-tender, non-distended, normal bowel sounds - Integumentary Integumentary: Present: clear, warm, dry - Neurologic Neurologic: CNII-XII intact, moves all extremities Results - Labs CBC & Chem 7: 05/22/17 06:23 05/22/17 06:23 Labs: Laboratory Last Values WBC 7.0 K/mm3 (4.5-11.0) 05/22/17 06:23 RBC 4.94 M/mm3 (3.65-5.03) 05/22/17 06:23 Hgb 14.3 gm/dl (11.8-15.2) 05/22/17 06:23 Hct 43.3 % (35.5-45.6) 05/22/17 06:23 MCV 88 fl (84-94) 05/22/17 06:23 MCH 29 pg (28-32) 05/22/17 06:23 MCHC 33 % (32-34) 05/22/17 06:23 RDW 14.4 % (13.2-15.2) 05/22/17 06:23 Plt Count 245 K/mm3 (140-440) 05/22/17 06:23 Lymph % (Auto) 28.4 % (13.4-35.0) 05/22/17 06:23 [place] % (Auto) 14.4 % (0.0-7.3) H 05/22/17 06:23 Eos % (Auto) 1.4 % (0.0-4.3) 05/22/17 06:23 Baso % (Auto) 0.4 % (0.0-1.8) 05/22/17 06:23 Lymph # 2.0 K/mm3 (1.2-5.4) 05/22/17 06:23 [place] # 1.0 K/mm3 (0.0-0.8) H 05/22/17 06:23 Eos # 0.1 K/mm3 (0.0-0.4) 05/22/17 06:23 Baso # 0.0 K/mm3 (0.0-0.1) 05/22/17 06:23 Seg Neutrophils % 55.4 % (40.0-70.0) 05/22/17 06:23 Seg Neutrophils # 3.9 K/mm3 (1.8-7.7) 05/22/17 06:23 PT 13.8 Sec. (12.2-14.9) 05/21/17 06:45 INR 1.01 (0.87-1.13) 05/21/17 06:45 APTT 30.6 Sec. (24.2-36.6) 05/21/17 06:45 Sodium 144 mmol/L (137-145) 05/22/17 06:23 Potassium 3.8 mmol/L (3.6-5.0) 05/22/17 06:23 Chloride 106.1 mmol/L (98-107) 05/22/17 06:23 Carbon Dioxide 23 mmol/L (22-30) 05/22/17 06:23 Anion Gap 19 mmol/L 05/22/17 06:23 BUN 14 mg/dL (9-20) 05/22/17 06:23 Creatinine 0.8 mg/dL (0.8-1.5) 05/22/17 06:23 Estimated GFR > 60 ml/min 05/22/17 06:23 BUN/Creatinine Ratio 18 % 05/22/17 06:23 Glucose 118 mg/dL (75-100) H 05/22/17 06:23 Calcium 9.1 mg/dL (8.4-10.2) 05/22/17 06:23 Total Bilirubin 1.10 mg/dL (0.1-1.2) 05/21/17 06:36 Direct Bilirubin 0.2 mg/dL (0-0.2) 05/21/17 06:36 Indirect Bilirubin 0.9 mg/dL 05/21/17 06:36 AST 19 units/L (5-40) 05/21/17 06:36 ALT 17 units/L (7-56) 05/21/17 06:36 Alkaline Phosphatase 101 units/L (35-129) 05/21/17 06:36 Troponin T 0.042 ng/mL (0.00-0.029) H 05/21/17 06:36 NT-Pro-B Natriuret Pep 688.9 pg/mL (0-900) 05/21/17 06:36 Total Protein 7.1 g/dL (6.3-8.2) 05/21/17 06:36 Albumin 3.8 g/dL (3.9-5) L 05/21/17 06:36 Albumin/Globulin Ratio 1.2 % 05/21/17 06:36 Triglycerides 79 mg/dL (2-149) 05/21/17 00:37 Cholesterol 128 mg/dL (50-199) 05/21/17 00:37 LDL Cholesterol Direct 48 mg/dL (50-130) L 05/21/17 00:37 HDL Cholesterol 65 mg/dL (40-59) H 05/21/17 00:37 Cholesterol/HDL Ratio 1.96 % 05/21/17 00:37
[2017-05-25] MEDS: ECOTRIN PO SCH (11:14)
[2017-05-25] MEDS: PLAVIX PO SCH (11:14)
[2017-05-25] MEDS: REMERON PO SCH (21:02)
[2017-05-26] MEDS: HEPARIN SUB-Q SCH ×2 (05:26→14:07)
[2017-05-26 10:40] VITALS: BP 139/96
--- NOTE | 2017-05-26 10:44 | Progress Note ---
Assessment and Plan Assessment and plan: Chest pain. Patient with no ST abnormalities on his ECG and no clinical or laboratory indicators of subacute stent thrombosis. Continue Aspirin, plavix. Beta Blockers held due to active cocaine use. Cardiology recommends conservative cardiac management. CAD s/p recent stent 2 weeks ago at [place]. Discontinue tobacco use Hypertension. BP stable. Suicidal. Continue 1013 with placement to inpatient psy services. Continue Remeron 15 mg PO HS for depression/sleep consolidation. 1:1 sitter, suicidal watch. Psych following. Cocaine abuse. Has been counseled on the importance of quitting. DVT prophylaxis. Cont Heparin subcut. History Interval history: No new issues overnight. Hospitalist Physical - Constitutional Vitals: Temp Pulse Resp BP Pulse Ox 98.4 F 55 L 18 139/96 98 05/26/17 08:08 05/26/17 10:00 05/26/17 08:08 05/26/17 08:08 05/26/17 08:08 General appearance: Present: no acute distress - EENT Eyes: Present: PERRL, EOM intact ENT: hearing intact, clear oral mucosa, dentition normal - Neck Neck: Present: supple, normal ROM - Respiratory Respiratory effort: normal Respiratory: bilateral: CTA - Cardiovascular Rhythm: regular Heart Sounds: Present: S1 & S2. Absent: gallop, rub - Extremities Extremities: no ischemia, No edema, Full ROM - Abdominal General gastrointestinal: soft, non-tender, non-distended, normal bowel sounds - Integumentary Integumentary: Present: clear, warm, dry - Neurologic Neurologic: CNII-XII intact, moves all extremities Results - Labs CBC & Chem 7: 05/22/17 06:23 05/22/17 06:23 Labs: Laboratory Last Values WBC 7.0 K/mm3 (4.5-11.0) 05/22/17 06:23 RBC 4.94 M/mm3 (3.65-5.03) 05/22/17 06:23 Hgb 14.3 gm/dl (11.8-15.2) 05/22/17 06:23 Hct 43.3 % (35.5-45.6) 05/22/17 06:23 MCV 88 fl (84-94) 05/22/17 06:23 MCH 29 pg (28-32) 05/22/17 06:23 MCHC 33 % (32-34) 05/22/17 06:23 RDW 14.4 % (13.2-15.2) 05/22/17 06:23 Plt Count 245 K/mm3 (140-440) 05/22/17 06:23 Lymph % (Auto) 28.4 % (13.4-35.0) 05/22/17 06:23 [place] % (Auto) 14.4 % (0.0-7.3) H 05/22/17 06:23 Eos % (Auto) 1.4 % (0.0-4.3) 05/22/17 06:23 Baso % (Auto) 0.4 % (0.0-1.8) 05/22/17 06:23 Lymph # 2.0 K/mm3 (1.2-5.4) 05/22/17 06:23 [place] # 1.0 K/mm3 (0.0-0.8) H 05/22/17 06:23 Eos # 0.1 K/mm3 (0.0-0.4) 05/22/17 06:23 Baso # 0.0 K/mm3 (0.0-0.1) 05/22/17 06:23 Seg Neutrophils % 55.4 % (40.0-70.0) 05/22/17 06:23 Seg Neutrophils # 3.9 K/mm3 (1.8-7.7) 05/22/17 06:23 PT 13.8 Sec. (12.2-14.9) 05/21/17 06:45 INR 1.01 (0.87-1.13) 05/21/17 06:45 APTT 30.6 Sec. (24.2-36.6) 05/21/17 06:45 Sodium 144 mmol/L (137-145) 05/22/17 06:23 Potassium 3.8 mmol/L (3.6-5.0) 05/22/17 06:23 Chloride 106.1 mmol/L (98-107) 05/22/17 06:23 Carbon Dioxide 23 mmol/L (22-30) 05/22/17 06:23 Anion Gap 19 mmol/L 05/22/17 06:23 BUN 14 mg/dL (9-20) 05/22/17 06:23 Creatinine 0.8 mg/dL (0.8-1.5) 05/22/17 06:23 Estimated GFR > 60 ml/min 05/22/17 06:23 BUN/Creatinine Ratio 18 % 05/22/17 06:23 Glucose 118 mg/dL (75-100) H 05/22/17 06:23 Calcium 9.1 mg/dL (8.4-10.2) 05/22/17 06:23 Total Bilirubin 1.10 mg/dL (0.1-1.2) 05/21/17 06:36 Direct Bilirubin 0.2 mg/dL (0-0.2) 05/21/17 06:36 Indirect Bilirubin 0.9 mg/dL 05/21/17 06:36 AST 19 units/L (5-40) 05/21/17 06:36 ALT 17 units/L (7-56) 05/21/17 06:36 Alkaline Phosphatase 101 units/L (35-129) 05/21/17 06:36 Troponin T 0.042 ng/mL (0.00-0.029) H 05/21/17 06:36 NT-Pro-B Natriuret Pep 688.9 pg/mL (0-900) 05/21/17 06:36 Total Protein 7.1 g/dL (6.3-8.2) 05/21/17 06:36 Albumin 3.8 g/dL (3.9-5) L 05/21/17 06:36 Albumin/Globulin Ratio 1.2 % 05/21/17 06:36 Triglycerides 79 mg/dL (2-149) 05/21/17 00:37 Cholesterol 128 mg/dL (50-199) 05/21/17 00:37 LDL Cholesterol Direct 48 mg/dL (50-130) L 05/21/17 00:37 HDL Cholesterol 65 mg/dL (40-59) H 05/21/17 00:37 Cholesterol/HDL Ratio 1.96 % 05/21/17 00:37
--- NOTE | 2017-05-26 10:53 | Progress Note ---
Subjective - Reason for Consult Consult date: 05/26/17 Reason for consult: Psychiatry Follow-up - Chief Complaint Chief complaint: "I will do better" Patient reports having a stent placed at the [place] [facility] approximately one week ago. Psychiatry was consulted to see patient for depression and SI's. Today the patient is calm and cooperative during the assessment. He stated that he will follow up with outpatient psy services and stay compliant on his medication once discharged. He denies SI/HI's and AVH's. He denies any side effects if his medication. Mental Status Exam - Vital signs Last Vital Signs Temp 98.4 F 05/26/17 08:08 Pulse 55 L 05/26/17 10:00 Resp 18 05/26/17 08:08 BP 139/96 05/26/17 08:08 Pulse Ox 98 05/26/17 08:08 - Exam Narrative exam: MSE: Appearance: calm, cooperative Behavior: regular eye contact Speech: regular rate and tone Mood: "okay" Affect: congruent to mood Thought Process: linear Thought Content: denies SI/HI's and AVH's Motor Activity: ambulatory Cognition: A/O x3 Insight: appropriate Judgment: appropriate Assessment and Plan Impression: MDD Severe Type. Today the patient is calm and cooperative during the assessment. DDx: R/O Bipolar DO Recommendation/Plan: Rescind 1013. Continue Remeron 15 mg PO HS for depression/ sleep consolidation. Discussed possible suicidality/medication induced sanjay with patient. Discussed the importance to abstain from recreational drug use. Patient can follow up with [facility] for outpatient psy/rehab services. Also, the patient can follow up with the [place] for rehab/psy services once discharged. Social Service involvement, patient is homeless.
[2017-05-26] MEDS: PLAVIX PO SCH (11:20)
[2017-05-26] MEDS: ECOTRIN PO SCH (11:21)
--- NOTE | 2017-05-26 16:08 | Discharge Summary ---
Providers - Providers Date of Admission: 05/21/17 08:13 Date of discharge: 05/26/17 Attending physician: SOLANGE PRETTY 05/21/17 Consult to Cardiac Rehabilitation [CONS] Routine Reason For Exam: Phase I 05/22/17 10:43 Consult to Mental Health [CONS] Routine Reason For Exam: Suicidal Place consult to:: Psych Notified:: apolinar Was contact made?: Yes Primary care physician: DEVENDRA ROJAS Hospitalization Reason for admission: cp, SI Condition: Stable Hospital course: 61 YO man with h/o htn, depression and CAD who presented to ED due to pain in the left side of his chest with associated dyspnea. He has not had any nausea or diaphoresis in association with chest pain. His troponin level was borderline elevated at 0.04. Of note, he reported he had recent PCI at [facility] with placement of 2 stents about 2 weeks ago. He also reported he has history of depression and had been thinking about killing himself. He was monitored with 1:1 sitter due to suicidal thoughts. He reported he has been compliant with all medications including aspirin and plavix. He also reports chronic history of crack cocaine use and last used crack cocaine yesterday. ECG revealed NSR. Pt was seen by Cardiology and Psychiatry. Pt was placed on 1013. Cardiology recommended no beta anthony due to cocaine abuse and stress test was negative. Psych monitored and later rescinded 1013. D/C home f/u with psych and cards. No Beta anthony secondary to cocaine abuse Disposition: DC-01 TO HOME OR SELFCARE Time spent for discharge: 32 - Discharge Diagnoses (1) Suicidal ideation Status: Acute Core Measure Documentation - Palliative Care Palliative Care/ Comfort Measures: Not Applicable - Core Measures Any of the following diagnoses?: none Exam - Constitutional Vitals: Temp Pulse Resp BP Pulse Ox 98.4 F 55 L 18 139/96 98 05/26/17 08:08 05/26/17 10:00 05/26/17 08:08 05/26/17 08:08 05/26/17 08:08 General appearance: Present: no acute distress, well-nourished - EENT Eyes: Present: PERRL ENT: hearing intact, clear oral mucosa - Neck Neck: Present: supple, normal ROM - Respiratory Respiratory effort: normal Respiratory: bilateral: CTA - Cardiovascular Heart Sounds: Present: S1 & S2. Absent: rub, click - Extremities Extremities: pulses symmetrical, No edema Peripheral Pulses: within normal limits - Abdominal General gastrointestinal: Present: soft, non-tender, non-distended, normal bowel sounds Male genitourinary: Present: normal - Integumentary Integumentary: Present: clear, warm, dry - Musculoskeletal Musculoskeletal: gait normal, strength equal bilaterally - Psychiatric Psychiatric: appropriate mood/affect, intact judgment & insight - Neurologic Neurologic: CNII-XII intact, moves all extremities Plan Activity: no restrictions Weight Bearing Status: Full Weight Bearing Diet: regular Follow up with: PRIMARY CARE, [Referring] - 3-5 Days Prescriptions: Mirtazapine [Remeron] 15 mg PO QHS #30 tablet
== END 2017-05-26 17:53 | disposition home or self-care (01) | DRG 392 ==
LOC: ED 18:48 → 4A 05-21 08:13
PROVIDERS: ADMIT Internal Medicine; ATTEND Hospitalist
DX: K21.9 Gastro-esophageal reflux disease without esophagitis (principal); I42.0 Dilated cardiomyopathy; F14.10 Cocaine abuse, uncomplicated; I25.10 Atherosclerotic heart disease of native coronary artery without angina pectoris; F32.9 Major depressive disorder, single episode, unspecified; I25.2 Old myocardial infarction; F17.200 Nicotine dependence, unspecified, uncomplicated; Z82.49 Family history of ischemic heart disease and other diseases of the circulatory system; E78.5 Hyperlipidemia, unspecified; Z79.82 Long term (current) use of aspirin; I25.5 Ischemic cardiomyopathy
CPT/HCPCS: 36415; 71045; 80048; 80061; 80074; 83880; 84484; 85025; 85610; 85730; 93005; 93010; J1644; J2270; J2405